=== PATIENT | male | born 2000 | race Caucasian/White ===

== ENCOUNTER 2024-07-13 19:59 | Emergency (ER) | payer OTHER, SELFPAY ==
[2024-07-13 20:05] VITALS: BP 130/76
--- NOTE | 2024-07-13 20:48 | ED.GENMED ---
History of Present Illness
General
Chief Complaint: Skin Surface Trauma
Source: patient
Exam Limitations: none
Time Seen by Provider: 07/13/24 20:31
Nursing documentation reviewed up to this point in time: agreed with
History of Present Illness
History of Present Illness:
Patient is a 24-year-old male presenting to the emergency department with laceration of right second digit occurring just prior to arrival. Patient states that he accidentally cut it on 'sheet-metal' while doing an at-home project. Patient states
this metal was clean. Patient was unable to get bleeding to stop at home prompting visit to emergency department. Patient denies any numbness/tingling in affected digit. He has full range of motion in affected digit. No other injury sustained.
He is unsure when his last tetanus shot is.
Review of Systems
Review of Systems
Allergies reviewed?: Yes
All Other Systems: ROS reviewed and negative except as documented in HPI and ROS
Phy Exam
Physical Exam
Physical Exam:
Vitals: Patient's vital signs are stable. Afebrile
General: Patient is well appearing, no acute distress
Skin: Approximately superficial 2 cm V-shaped laceration of right second digit at dorsal aspect near DIP joint.
Head: Normocephalic, atraumatic
Throat: Protecting airway
Neck: Normal ROM, no cervical spine tenderness
Cardiac: Regular rate
Pulm: No apparent respiratory distress
Abdomen: Nondistended
Extremities: Laceration to right second digit as described above. Patient has full range of motion in right second digit at MCP, PIP, and DIP joints against resistance. Normal sensation. Capillary refill WNL.
Neuro: Grossly intact
Psychiatric: Normal affect.
Course
Orders/Labs/Results
Orders:
Orders
07/13/24 20:48
Tetanus/Diphth/Acelpertussis [Adacel] 0.5 ml IM .ONCE ONE
Vital Signs
Initial and Last Documented VS:
Initial Vital Signs
Temp Pulse Resp BP Pulse Ox
98.5 F 64 16 130/76 98
07/13/24 20:05 07/13/24 20:05 07/13/24 20:05 07/13/24 20:05 07/13/24 20:05
Last Documented Vital Signs
Temp Pulse Resp BP Pulse Ox
98.5 F 64 16 130/76 98
07/13/24 20:05 07/13/24 20:05 07/13/24 20:05 07/13/24 20:05 07/13/24 20:05
Procedures
Laceration Closure
Right Second Finger(s):
Status of Wound: dirty
Size of Wound in cm: 2
Description of Wound Edges: sharp
Preparation: cleaned with saline and cleaned with Betadine
Anesthesia: 1% Lidocaine
Revision/Debridement: routine- no revision
Wound exploration: explored to base- no FB
Type of Closure: single layer closure and interrupted sutures
Skin Closure Material: 5-0 nylon
Number of sutures: 2
Additional information:
Wound closed with two, 5-0 nylon sutures and 1 Steri-Strip
MDM/Problems Addressed
Differential Diagnosis Includes:
Not limited to: Laceration, abrasion, etc.
MDM/Problems Addressed:
24-year-old male presenting with laceration to right second digit occurring with sheet metal just prior to arrival. No other associated injuries. No numbness/tingling or weakness in affected digit. Vitals and physical exam as above. There is an
approximately 2 cm V-shaped laceration at dorsal aspect of right second digit near MCP joint. No evidence of tendon involvement. Affected digit is neurovascularly intact. Wound relatively superficial although does appear to be slightly deeper at
lateral aspect with active bleeding. Wound will require primary closure today. Verbal consent obtained by patient. Given concern of contamination�patient did soak wound in diluted iodine for approximately 30 minutes. Wound was then anesthetized
with local 1% lidocaine and thoroughly cleansed with normal saline and iodine swab. 2 simple interrupted sutures placed at lateral aspect of wound with excellent skin approximation. Medial aspect closed with 1 Steri-Strip. Hemostasis obtained.
Patient tolerated procedure well. Patient was placed in finger splint and dressing applied. Discussed suture removal in 10 to 14 days. Lengthy discussion with patient regarding wound care and signs of infection. Patient otherwise stable for
discharge home. Return precautions discussed. Patient verbalized understanding.
Chronic conditions affecting care:
N/A
Acute Exacerbation and/or Progression of Chronic Illness:
N/A
*Pulse Oximetry
Patient hypoxic: no
*EKG
Interpreted by ED Provider?: NA
*Therapist Phys Interpretation
Rate: Therapist Phys- N/A
*Critical Care Note
Total Time (30-74mins, 75-104mins- exclusive of procedures): Not Applicable
ED Attending Note
-
Portions of this chart may have been created with voice recognition software.� Occasional wrong word or��sound alike� substitutions may have occurred due to the inherent limitations of voice recognition software.
Discharge Plan
Departure
Patient Disposition: Home (Routine Discharge)
Date of Disposition: 07/13/24
Time of Disposition: 21:55
Patient with high blood pressure during this ER visit?: No
Condition: Good
Covid-19: Not Applicable
Discharge Problem:
Laceration of index finger
Instructions: Wound Care (DC), Laceration Repair With Stitches (DC)
Referrals:
UNKNOWN - PT DOES,NOT KNOW [Family Provider] -
Activity Restrictions/Additional Instructions:
Return to the emergency department with any signs of infection including fever, significant redness, swelling or purulent drainage from wound, red streaking from wound, or any other concerns
- Your wound was closed with 2 stitches in the emergency department and a Steri-Strip. The stitches need to be removed in 10 to 14 days. This can be done at your primary care physician, urgent care, or emergency department.
- Keep finger in splint until stitches are removed to limit range of motion. Keep current bandage on for 24 hours then remove and wash gently with soap and water. Keep covered until stitches are removed with small amount of antibiotic ointment.
- Follow-up with your primary care as needed for further evaluation/management
Monitor your symptoms closely and return to the emergency department with any acute worsening/new symptoms or any other concerns
Interventions
Interventions:
*Risk Screen - Suicide Last Done: 07/13/24 21:14
*General Assessment Last Done: 07/13/24 21:14
*Neglect/Abuse Screening Last Done: 07/13/24 21:14
*ED- Fall Risk Assessment Last Done: 07/13/24 21:14
*ED COVID-19 Vaccine History Last Done: 07/13/24 21:14
*Nursing Disposition Last Done: 07/13/24 22:22
ED-Skin Assessment Last Done: 07/13/24 21:13
Discharge Date and Time
Discharge Date/Time: 07/13/24 22:22
Print Language: TANZANIAN
[2024-07-13] MEDS: ADACEL 0.5 ML IM (22:19)
== END 2024-07-13 22:22 | disposition home or self-care (01) ==
LOC: EMR 19:59
PROVIDERS: EMERGENCY PHYSICIAN Emergency Medicine
DX: S61.210A Laceration without foreign body of right index finger without damage to nail, initial encounter (principal); W45.8XXA Other foreign body or object entering through skin, initial encounter; Z23 Encounter for immunization
CPT/HCPCS: 12001; 90471; 99284; 90715